=== PATIENT | male | born 1970 | race Caucasian/White ===

== ENCOUNTER 2017-11-01 15:42 | Emergency (ER) | payer SELFPAY ==
--- OUTSIDE RECORDS SUMMARY | 2017-11-01 15:44 | XMS REPORT ---
:1970 [facility] Address [address] [place] [address] Care Team Providers Name Role Phone VLADIMIR YONI Charlton Unavailable Unavailable Problems This patient has no known problems. Allergies, Adverse Reactions, Alerts This patient has no known allergies or adverse reactions. Medications This patient has no known medications. Results Test Description Test Time Test Comments Text Results Atomic Results Result Comments URINE CULTURE 2017-02-14 11:33:00 Test Item Value Reference Range Comments CULTURE (BEAKER) (test siai=7822) No growth POCT-GLUCOSE [id number] 07:35:00 Test Item Value Reference Range Comments POC-GLUCOSE METER (BEAKER) 207 mg/dL 70-110 TESTED AT [facility] [address] [facility] (test tsyw=4963) [facility] [address] BASIC METABOLIC [id number] 05:53:00 Test Item Value Reference Range Comments SODIUM (BEAKER) (test 134 meq/L 136-145 kvxb=125) POTASSIUM (BEAKER) (test 4.0 meq/L 3.5-5.1 ptjk=474) CHLORIDE (BEAKER) (test 103 meq/L 98-107 cvmw=412) CO2 (BEAKER) (test 23 meq/L 22-29 ykel=087) BLOOD UREA NITROGEN 13 mg/dL 7-21 (BEAKER) (test huhq=975) CREATININE (BEAKER) (test 0.91 mg/dL 0.57-1.25 sufv=202) GLUCOSE RANDOM (BEAKER) 176 mg/dL 70-105 (test csmn=406) CALCIUM (BEAKER) (test 8.9 mg/dL 8.4-10.2 cfnd=958) EGFR (BEAKER) (test 90 mL/min/1.73 sq m ESTIMATED GFR IS NOT vmmk=4050) ACCURATE CREATININE CLEARANCE IN PREDICTING GLOMERULAR FILTRATION RATE. ESTIMATED GFR IS NOT APPLICABLE FOR DIALYSIS PATIENTS. CBC W/PLT COUNT & AUTO [id number] 05:23:00 Test Item Value Reference Range Comments WHITE BLOOD CELL COUNT (BEAKER) (test wwlz=053) 7.0 K/ L 3.5-10.5 RED BLOOD CELL COUNT (BEAKER) (test aefs=629) 5.15 M/ L 4.63-6.08 HEMOGLOBIN (BEAKER) (test kpzn=894) 15.3 GM/DL 13.7-17.5 HEMATOCRIT (BEAKER) (test nzfz=546) 44.7 % 40.1-51.0 MEAN CORPUSCULAR VOLUME (BEAKER) (test vizg=006) 86.8 fL 79.0-92.2 MEAN CORPUSCULAR HEMOGLOBIN (BEAKER) (test 29.7 pg 25.7-32.2 eyvm=528) MEAN CORPUSCULAR HEMOGLOBIN CONC (BEAKER) (test 34.2 GM/DL 32.3-36.5 mcuf=401) RED CELL DISTRIBUTION WIDTH (BEAKER) (test 11.9 % 11.6-14.4 sclq=951) PLATELET COUNT (BEAKER) (test xbep=671) 239 K/CU MM 150-450 MEAN PLATELET VOLUME (BEAKER) (test epqb=565) 9.4 fL 9.4-12.4 NUCLEATED RED BLOOD CELLS (BEAKER) (test 0 /100 WBC 0-0 uxvf=008) NEUTROPHILS RELATIVE PERCENT (BEAKER) (test 48 % frhg=482) LYMPHOCYTES RELATIVE PERCENT (BEAKER) (test 40 % blgb=059) MONOCYTES RELATIVE PERCENT (BEAKER) (test 7 % slys=140) EOSINOPHILS RELATIVE PERCENT (BEAKER) (test 4 % yjok=103) BASOPHILS RELATIVE PERCENT (BEAKER) (test 1 % akwz=593) NEUTROPHILS ABSOLUTE COUNT (BEAKER) (test 3.36 K/ L 1.78-5.38 dxtb=495) LYMPHOCYTES ABSOLUTE COUNT (BEAKER) (test 2.83 K/ L 1.32-3.57 jteo=027) MONOCYTES ABSOLUTE COUNT (BEAKER) (test 0.49 K/ L 0.30-0.82 zpqg=402) EOSINOPHILS ABSOLUTE COUNT (BEAKER) (test 0.28 K/ L 0.04-0.54 jqts=300) BASOPHILS ABSOLUTE COUNT (BEAKER) (test 0.04 K/ L 0.01-0.08 jxtn=705) IMMATURE GRANULOCYTES-RELATIVE PERCENT (BEAKER) 0 % 0-1 (test nubg=9063) POCT-GLUCOSE [id number] 21:20:00 Test Item Value Reference Range Comments POC-GLUCOSE METER (BEAKER) 211 mg/dL 70-110 TESTED AT [address] (test honx=8216) [place] [address] URINALYSIS W/ [id number] 17:49:00 Test Item Value Reference Range Comments COLOR (BEAKER) (test bpvu=825) Yellow CLARITY (BEAKER) (test yrth=809) Clear SPECIFIC GRAVITY UA (BEAKER) (test sqrf=936) 1.009 1.001-1.035 PH UA (BEAKER) (test jgxv=314) 5.0 5.0-8.0 PROTEIN UA (BEAKER) (test nnmy=925) Negative Negative GLUCOSE UA (BEAKER) (test jvki=606) Negative Negative KETONES UA (BEAKER) (test ynky=690) Negative Negative BILIRUBIN UA (BEAKER) (test ldmv=815) Negative Negative BLOOD UA (BEAKER) (test kadw=241) Small Negative NITRITE UA (BEAKER) (test nodr=834) Negative Negative LEUKOCYTE ESTERASE UA (BEAKER) (test ewel=353) Trace Negative UROBILINOGEN UA (BEAKER) (test jctq=119) 0.2 mg/dL 0.2-1.0 RBC UA (BEAKER) (test zoqo=766) 7 /HPF WBC UA (BEAKER) (test qlqr=195) 10 /HPF MUCUS (BEAKER) (test luqb=5233) Rare SOURCE(BEAKER) (test dpgm=1550) Urine, Voided POCT-GLUCOSE [id number] 17:19:00 Test Item Value Reference Range Comments POC-GLUCOSE METER (BEAKER) 156 mg/dL 70-110 TESTED AT [address] (test ohlw=1508) [place] [address]
--- OUTSIDE RECORDS SUMMARY | 2017-11-01 15:44 | XMS REPORT | Clinical Summary ---
:1970 Author Organization [facility] Address [address] [place] [address] Phone Care Team Providers Name Role Phone Unavailable Primary Care Provider Unavailable Allergies No Known Allergies Current Medications Prescription Sig. Disp. Refills Start Date End Date Status metFORMIN Take 500 mg by Active (GLUCOPHAGE) 500 MG mouth 2 (two) tablet times daily with breakfast and dinner. ciprofloxacin HCl Take 1 tablet 28 tablet 0 02/13/2017 02/27/2017 (CIPRO) 500 MG tablet (500 mg total) by mouth 2 (two) times daily for 14 days. acetaminophen-codeine Take 1 tablet by 30 tablet 0 02/13/2017 02/23/2017 (TYLENOL-CODEINE #3) mouth every 4 300-30 mg per tablet (four) hours as needed for Pain for up to 10 days. Max Daily Amount: 6 tablets ketorolac (TORADOL) Take 1 tablet 20 tablet 0 02/13/2017 02/18/2017 10 mg tablet (10 mg total) by mouth every 6 (six) hours as needed for Pain for up to 5 days. Active Problems Problem Noted Date Nephrolithiasis 02/12/2017 Type 2 diabetes mellitus without complication (HCC) 02/12/2017 Hydronephrosis 02/12/2017 Encounters Date Type Specialty Care Team Description 02/12/2017 - Hospital Encounter General Internal Sarah Echols, Type 2 diabetes 02/13/2017 Medicine mellitus without Zakia Ayala R., MD without long-term current use of insulin (HCC) (Primary Dx);Nephrolithiasis ;Hydronephrosis with urinary obstruction due to renal calculus after 10/31/2016 Social History Tobacco Use Types Packs/Day Years Used Date Never Assessed Sex Assigned at Date Recorded Not on file Last Filed Vital Signs Vital Sign Reading Time Taken Blood Pressure 113/65 02/13/2017 7:38 AM CDT Pulse 67 02/13/2017 7:38 AM CDT Temperature 36.1 C (96.9 F) 02/13/2017 7:38 AM CDT Respiratory Rate 18 02/13/2017 7:38 AM CDT Oxygen Saturation 92% 02/13/2017 7:38 AM CDT Inhaled Oxygen Concentration - - Weight 114.3 kg (252 lb) 02/12/2017 3:42 PM CDT Height 177.8 cm (5' 10") 02/12/2017 3:42 PM CDT Body Mass Index 36.16 02/12/2017 3:42 PM CDT Plan of Treatment Not on file Results POC-Glucose meter (02/13/2017 7:30 AM)Only the most recent of3 resultswithin the time period is included. Component Value Ref Range POC-Glucose Meter 207 (H)Comment: TESTED AT [address] 70 - 110 mg/[place] [address] Specimen Performing Laboratory Blood [address] [address] CBC with platelet count + automated diff (02/13/2017 4:09 AM) Component Value Ref Range WBC 7.0 3.5 - 10.5 K/L RBC 5.15 4.63 - 6.08 M/L Hemoglobin 15.3 13.7 - 17.5 GM/DL Hematocrit 44.7 40.1 - 51.0 % MCV 86.8 79.0 - 92.2 fL MCH 29.7 25.7 - 32.2 pg MCHC 34.2 32.3 - 36.5 GM/DL RDW 11.9 11.6 - 14.4 % Platelets 239 150 - 450 K/CU MM MPV 9.4 9.4 - 12.4 fL nRBC 0 0 - 0 /100 WBC % Neutros 48 % % Lymphs 40 % % Monos 7 % % Eos 4 % % Baso 1 % # Neutros 3.36 1.78 - 5.38 K/L # Lymphs 2.83 1.32 - 3.57 K/L # Monos 0.49 0.30 - 0.82 K/L # Eos 0.28 0.04 - 0.54 K/L # Baso 0.04 0.01 - 0.08 K/L Immature Granulocytes-Relative 0 0 - 1 % Specimen Performing Laboratory Blood [address] [address] CBC with platelet count + automated diff (02/13/2017 4:09 AM) Specimen Performing Laboratory Blood Narrative The following orders were created for panel order CBC with platelet count + automated diff. Procedure Abnormality Status --------- ------ CBC with platelet count ...[[id number]]Final result Please view results for these tests on the individual orders. Basic Metabolic Panel (02/13/2017 4:09 AM) Component Value Ref Range Sodium 134 (L) 136 - 145 meq/L Potassium 4.0 3.5 - 5.1 meq/L Chloride 103 98 - 107 meq/L CO2 23 22 - 29 meq/L BUN 13 7 - 21 mg/dL Creatinine 0.91 0.57 - 1.25 mg/dL Glucose 176 (H) 70 - 105 mg/dL Calcium 8.9 8.4 - 10.2 mg/dL EGFR 90Comment: ESTIMATED GFR IS NOT ACCURATE mL/min/1.73 sq m CREATININE CLEARANCE IN PREDICTING GLOMERULAR FILTRATION RATE. ESTIMATED GFR IS NOT APPLICABLE FOR DIALYSIS PATIENTS. Specimen Performing Laboratory Blood [address] [address] Urinalysis w/Microscopic (02/12/2017 5:13 PM) Component Value Ref Range Color, UA Yellow Clarity, UA Clear Specific [place], UA 1.009 1.001 - 1.035 pH, UA 5.0 5.0 - 8.0 Protein, UA Negative Negative Glucose, UA Negative Negative Ketones, UA Negative Negative Bilirubin, UA Negative Negative Blood, UA Small (A) Negative Nitrite, UA Negative Negative Leukocytes, UA Trace (A) Negative Urobilinogen, UA 0.2 0.2 - 1.0 mg/dL RBC, UA 7 /HPF WBC, UA 10 /HPF Mucus Rare Specimen Source Urine, Voided Specimen Performing Laboratory Urine - Urine, Voided [address] [address] Urine culture (02/12/2017 5:13 PM) Component Value Ref Range Result No growth Specimen Performing Laboratory Urine - Urine, Voided [address] [address] after 10/31/2016
--- NOTE | 2017-11-01 19:46 | ER ---
Nurse's Notes [facility] Name: Manuel Syed Age: 47 yrs Sex: Male : 1970 Arrival Date: 11/01/2017 Time: 15:45 Bed Waiting Private MD: out of town, doctor Diagnosis: Presentation: 11/01 15:52 Presenting complaint: Patient states: "Sitting in my office today and I got a really sv weak and tired feeling, nauseated, and started sweating really bad. Real confusion. I had to think about things." Pt reports he just started taking his glyburide again today. Reports BS at work was 121. Transition of care: patient was not received from another setting of care. Onset of symptoms was November 01, 2017. 15:52 Method Of Arrival: Ambulatory sv 15:52 Acuity: KENDRA 3 sv 15:54 Care prior to arrival: None. sv Triage Assessment: 15:52 General: Appears comfortable, well groomed, Behavior is calm, cooperative, appropriate sv for age. Pain: Denies pain. EENT: No signs and/or symptoms were reported regarding the EENT system. Neuro: Level of Consciousness is awake, alert, obeys commands, Oriented to person, place, time, situation, Moves all extremities. Full function Gait is steady, Speech is normal, Reports dizziness, weakness. Respiratory: Respiratory effort is even, unlabored, Respiratory pattern is regular, symmetrical. GI: Reports nausea. Derm: Skin is normal. 16:44 General: Appears comfortable, Reports feeling better. Neuro: Level of Consciousness is sv awake, alert, obeys commands, Oriented to person, place, time, situation, Moves all extremities. Full function Gait is steady, Speech is normal. Respiratory: Respiratory effort is even, unlabored, Respiratory pattern is regular, symmetrical. Historical: - Allergies: 15:54 Macrobid; sv - Home Meds: 15:54 Metformin Oral [Active]; Glyburide Oral [Active]; sv - PMHx: 15:54 Diabetes - NIDDM; Diverticulitis; Kidney stones; sv - PSHx: 15:54 colon sx; sv - Social history:: Smoking status: Patient uses tobacco products, smokes one pack cigarettes per day. Vital Signs: 15:55 BP 133 / 88; Pulse 87; Resp 18; Pulse Ox 96% ; Weight 115.67 kg; Height 5 ft. 11 in. sv (180.34 cm); Pain 0/10; 15:55 Body Mass Index 35.56 (115.67 kg, 180.34 cm) sv ED Course: 15:45 Patient arrived in ED. mr 15:46 out of town, doctor is Private Physician. mr 15:52 Arm band placed on right wrist. Patient placed in waiting room, Patient notified of sv wait time Patient Pt given orange juice, crackers and peanut butter. Will recheck BS. 15:53 Triage completed. sv 16:44 EKG completed in triage. Results shown to MD. sv 16:44 EKG done, by technical asst. sv Administered Medications: No medications were administered Point of Care Testing: Blood Glucose: 15:58 Blood Glucose: 78 mg/dL; sv 16:44 Blood Glucose: 136 mg/dL; sv Ranges: Outcome: 19:45 Eloped from waiting room, before seeing physician Time discovered patient gone: November 01, lp1 2018 at 19:39 19:45 Condition: stable 19:46 Patient left the ED. lp1 Signatures: Lina Pan, RN RN Sarah Magaña mr Sharon Horn, RN RN lp1 Corrections: (The following items were deleted from the chart) 15:55 15:52 Presenting complaint: Patient states: "Sitting in my office today and I got a sv really weak and tired feeling, nauseated, and started sweating really bad. Real confusion. I had to think about things." sv
--- NOTE | 2017-11-01 21:33 | EKG ---
Test Date: 2017-11-01 Test Time: 16:44:40 Net Sql Developer: LEANA MEASUREMENT RESULTS: Intervals: Rate: 88 CO: 150 QRSD: 84 QT: 344 QTc: 416 [place]: P: 52 CO: 150 QRS: 85 T: 40 INTERPRETIVE STATEMENTS: Normal sinus rhythm Normal ECG Compared to ECG 08/09/2016 16:00:10 Sinus arrhythmia no longer present Electronically Signed On 11-01-17 21:32:27 CDT by Addison August
== END 2017-11-01 19:46 | disposition left against medical advice (07) ==
LOC: ER 15:42
DX: Z53.21 Procedure and treatment not carried out due to patient leaving prior to being seen by health care provider (principal)
CPT/HCPCS: 82962; 93005; 99283

== ENCOUNTER 2018-02-01 09:20 | Emergency (ER) | payer SELFPAY ==
--- OUTSIDE RECORDS SUMMARY | 2018-02-01 09:33 | XMS REPORT | Clinical Summary ---
:1970 Author Organization [facility] Address [address] [place] [address] Phone Care Team Providers Name Role Phone [...] urinary obstruction due to renal calculus after 01/31/2017 Social History Tobacco Use Types Packs/Day Years [...] Range POC-Glucose Meter 207 (H)Comment: TESTED AT [address] 70 - 110 mg/[place] [address] Specimen Performing Laboratory Blood [address] [address] CBC with platelet count + automated diff [...] - 1 % Specimen Performing Laboratory Blood [address] [address] CBC with platelet count + automated diff (02/13/2017 4:09 AM) Specimen Performing Laboratory Blood Narrative The following orders were created for panel order CBC with platelet count + automated diff. Procedure Abnormality Status --------- ------ CBC with platelet count ...[[id number]]Final result Please view results for these tests [...] FOR DIALYSIS PATIENTS. Specimen Performing Laboratory Blood [address] [address] Urinalysis w/Microscopic (02/12/2017 5:13 PM) Component Value Ref Range Color, UA Yellow Clarity, UA Clear Specific [place], UA 1.009 1.001 - 1.035 pH, UA [...] Specimen Performing Laboratory Urine - Urine, Voided [address] [address] Urine culture (02/12/2017 5:13 PM) Component Value Ref Range Result No growth Specimen Performing Laboratory Urine - Urine, Voided [address] [address] after 01/31/2017
--- OUTSIDE RECORDS SUMMARY | 2018-02-01 09:33 | XMS REPORT ---
:1970 [facility] Address [address] [place] [address] Care Team Providers Name Role Phone VLADIMIR [...] Value Reference Range Comments CULTURE (BEAKER) (test ipqu=8018) No growth POCT-GLUCOSE [id number] 07:35:00 Test Item Value Reference Range Comments POC-GLUCOSE METER (BEAKER) 207 mg/dL 70-110 TESTED AT [facility] [address] [facility] (test chnu=1552) [facility] [address] BASIC METABOLIC [id number] 05:53:00 Test Item Value Reference Range Comments SODIUM (BEAKER) (test 134 meq/L 136-145 qujy=300) POTASSIUM (BEAKER) (test 4.0 meq/L 3.5-5.1 bjyn=113) CHLORIDE (BEAKER) (test 103 meq/L 98-107 vlbx=965) CO2 (BEAKER) (test 23 meq/L 22-29 qgsq=608) BLOOD UREA NITROGEN 13 mg/dL 7-21 (BEAKER) (test zsaf=314) CREATININE (BEAKER) (test 0.91 mg/dL 0.57-1.25 grcx=188) GLUCOSE RANDOM (BEAKER) 176 mg/dL 70-105 (test cnjv=717) CALCIUM (BEAKER) (test 8.9 mg/dL 8.4-10.2 cmxy=291) EGFR (BEAKER) (test 90 mL/min/1.73 sq m ESTIMATED GFR IS NOT hhxx=1341) ACCURATE CREATININE CLEARANCE IN PREDICTING GLOMERULAR FILTRATION RATE. ESTIMATED GFR IS NOT APPLICABLE FOR DIALYSIS PATIENTS. CBC W/PLT COUNT & AUTO [id number] 05:23:00 Test Item Value Reference Range Comments WHITE BLOOD CELL COUNT (BEAKER) (test zhcj=583) 7.0 K/ L 3.5-10.5 RED BLOOD CELL COUNT (BEAKER) (test qvvh=828) 5.15 M/ L 4.63-6.08 HEMOGLOBIN (BEAKER) (test mvft=991) 15.3 GM/DL 13.7-17.5 HEMATOCRIT (BEAKER) (test yden=354) 44.7 % 40.1-51.0 MEAN CORPUSCULAR VOLUME (BEAKER) (test nxms=483) 86.8 fL 79.0-92.2 MEAN CORPUSCULAR HEMOGLOBIN (BEAKER) (test 29.7 pg 25.7-32.2 qxii=737) MEAN CORPUSCULAR HEMOGLOBIN CONC (BEAKER) (test 34.2 GM/DL 32.3-36.5 kjeu=312) RED CELL DISTRIBUTION WIDTH (BEAKER) (test 11.9 % 11.6-14.4 jdur=104) PLATELET COUNT (BEAKER) (test bfaz=446) 239 K/CU MM 150-450 MEAN PLATELET VOLUME (BEAKER) (test fxzm=580) 9.4 fL 9.4-12.4 NUCLEATED RED BLOOD CELLS (BEAKER) (test 0 /100 WBC 0-0 fhcc=717) NEUTROPHILS RELATIVE PERCENT (BEAKER) (test 48 % ubtx=927) LYMPHOCYTES RELATIVE PERCENT (BEAKER) (test 40 % jzzw=102) MONOCYTES RELATIVE PERCENT (BEAKER) (test 7 % dndv=738) EOSINOPHILS RELATIVE PERCENT (BEAKER) (test 4 % yzbi=739) BASOPHILS RELATIVE PERCENT (BEAKER) (test 1 % tnuq=128) NEUTROPHILS ABSOLUTE COUNT (BEAKER) (test 3.36 K/ L 1.78-5.38 wsew=376) LYMPHOCYTES ABSOLUTE COUNT (BEAKER) (test 2.83 K/ L 1.32-3.57 oiny=137) MONOCYTES ABSOLUTE COUNT (BEAKER) (test 0.49 K/ L 0.30-0.82 hsdu=826) EOSINOPHILS ABSOLUTE COUNT (BEAKER) (test 0.28 K/ L 0.04-0.54 tlgc=245) BASOPHILS ABSOLUTE COUNT (BEAKER) (test 0.04 K/ L 0.01-0.08 pcty=228) IMMATURE GRANULOCYTES-RELATIVE PERCENT (BEAKER) 0 % 0-1 (test hcup=0726) POCT-GLUCOSE [id number] 21:20:00 Test Item Value Reference Range Comments POC-GLUCOSE METER (BEAKER) 211 mg/dL 70-110 TESTED AT [address] (test cshm=9290) [place] [address] URINALYSIS W/ [id number] 17:49:00 Test Item Value Reference Range Comments COLOR (BEAKER) (test goqw=365) Yellow CLARITY (BEAKER) (test mnxl=327) Clear SPECIFIC GRAVITY UA (BEAKER) (test krkj=622) 1.009 1.001-1.035 PH UA (BEAKER) (test owkb=821) 5.0 5.0-8.0 PROTEIN UA (BEAKER) (test zxxg=288) Negative Negative GLUCOSE UA (BEAKER) (test eces=482) Negative Negative KETONES UA (BEAKER) (test hbxp=039) Negative Negative BILIRUBIN UA (BEAKER) (test gtfu=958) Negative Negative BLOOD UA (BEAKER) (test dnbh=784) Small Negative NITRITE UA (BEAKER) (test pwbv=033) Negative Negative LEUKOCYTE ESTERASE UA (BEAKER) (test soqh=046) Trace Negative UROBILINOGEN UA (BEAKER) (test fhqu=739) 0.2 mg/dL 0.2-1.0 RBC UA (BEAKER) (test xbuw=611) 7 /HPF WBC UA (BEAKER) (test yous=851) 10 /HPF MUCUS (BEAKER) (test hshp=8591) Rare SOURCE(BEAKER) (test jdjc=4735) Urine, Voided POCT-GLUCOSE [id number] 17:19:00 Test Item Value Reference Range Comments POC-GLUCOSE METER (BEAKER) 156 mg/dL 70-110 TESTED AT [address] (test akbl=7569) [place] [address]
[2018-02-01 09:58] LABS: Absolute Monocytes 0.6 K/uL (0.1-1.3); Basophils % 0.6 % (0-1.3); Eosinophils % 2.3 % (0-4.4); Hematocrit 48.6 % (39.6-49.0); Lymphocytes % 20.6 % (15.3-44.8); MCH 30.8 pg (27.0-35.0); MCV 87.7 fL (80-100); MPV 7.1 fL (7.6-11.3); Monocytes % 5.7 % (3.3-12.3); RBC Red Blood Cell Count 5.54 M/uL (4.33-5.43)
[2018-02-01] MEDS ORDERED: NA CHLORIDE 0.9% 500 ML ONE (10:02)
--- NOTE | 2018-02-01 10:11 | RAD REPORT ---
EXAM DESCRIPTION: CT - Head Brain Wo Cont - 02/01/2018 10:05 am CLINICAL HISTORY: DIZZINESS<Reason For Exam>DIZZINESS Weakness and numbness to the left upper extremity COMPARISON: Head Brain Wo Cont dated 08/09/2016<Comparisons> None. TECHNIQUE: Axial 5 mm thick images of the head were obtained without IV contrast. All CT scans are performed using dose optimization technique as appropriate and may include automated exposure control or mA/KV adjustment according to patient size. FINDINGS: No intracranial hemorrhage, mass, edema or shift of mid-line structures. No acute infarcti on changes seen. No abnormal extra-axial fluid collections. Ventricles are normal. Mastoid air cells and visualized portions of the paranasal sinuses are clear. No acute bony findings. No significant change noted from the 2017 study. IMPRESSION: Negative noncontrast CT head examination for acute finding. No significant change from c omparison. MR imaging could be performed if there are continued neurologic deficits and clinical concerns for CV A.
[2018-02-01 10:21] LABS: BUN Blood Urea Nitrogen 16 mg/dL (7-18); Bicarbonate 26 mmol/L (21-32); CKMB Creatine Kinase MB < 1.0 ng/mL (0.3-3.6); Creatine Phosphokinase 38 U/L (39-308); Glucose Level 239 mg/dL (74-106); Magnesium 1.9 mg/dL (1.8-2.4); Potassium 3.9 mmol/L (3.5-5.1); Sodium Level 135 mmol/L (136-145)
--- NOTE | 2018-02-01 11:33 | RAD REPORT ---
EXAM DESCRIPTION: MRI - Brain Wo Cont - 02/01/2018 11:24 am CLINICAL HISTORY: Dizziness; Numbness left arm COMPARISON: Head Brain Wo Cont dated 02/01/2018Head CT February 01, 2018 TECHNIQUE: Axial, sagittal, and coronal magnetic images of the brain were obtained. Contrast was not requested FINDINGS: No abnormal signal is present within the brain. Diffusion-weighted/ADC mapping does not reveal evidence of acute infarction. The ventricles are normal caliber. An extra-axial fluid collection is not present The sinuses and mastoids are clear. IMPRESSION: Unremarkable unenhanced brain MRI
--- NOTE | 2018-02-01 11:43 | ER ---
Nurse's Notes [facility] Name: Manuel Syed Age: 47 yrs Sex: Male : 1970 Arrival Date: 02/01/2018 Time: 09:23 Bed 25 Private MD: out of town, doctor Diagnosis: Paresthesia of skin;Hyperglycemia, unspecified;Dehydration;Dizziness and giddiness Presentation: 02/01 09:31 Presenting complaint: Patient states: Dizziness and weakness with numbness to left aj fingertips and lips that started at 0830 this AM. Transition of care: patient was not received from another setting of care. Onset of symptoms was February 01, 2018 at 08:30. Risk Assessment: Do you want to hurt yourself or someone else? Patient reports no desire to harm self or others. Initial Sepsis Screen: Does the patient meet any 2 criteria? No. Patient's initial sepsis screen is negative. Does the patient have a suspected source of infection? No. Patient's initial sepsis screen is negative. Care prior to arrival: Medication(s) given: ASA, 81 mg, x 2. 09:31 Method Of Arrival: Ambulatory 09:31 Acuity: KENDRA 3 aj Triage Assessment: 09:33 General: Appears in no apparent distress. comfortable, Behavior is calm, cooperative, aj appropriate for age. Pain: Denies pain. Neuro: Level of Consciousness is awake, alert, obeys commands, Oriented to person, place, time, situation, Appropriate for age Candy Catcher are equal bilaterally Moves all extremities. Full function Gait is steady, Speech is normal, Facial symmetry appears normal, Pupils are PERRLA, Numbness in mouth, palmar aspect of distal phalanx of left little finger, palmar aspect of middle phalanx of left little finger, palmar aspect of proximal phalanx of left little finger, palmar aspect of distal phalanx of left ring finger, palmar aspect of middle phalanx of left ring finger, palmar aspect of proximal phalanx of left ring finger, palmar aspect of distal phalanx of left middle finger, palmar aspect of middle phalanx of left middle finger, palmar aspect of proximal phalanx of left middle finger, palmar aspect of distal phalanx of left index finger, palmar aspect of middle phalanx of left index finger and palmar aspect of proximal phalanx of left index finger. Cardiovascular: Denies chest pain. Respiratory: Airway is patent Respiratory effort is even, unlabored, Respiratory pattern is regular, symmetrical. Derm: Skin is intact, is healthy with good turgor, Skin is pink, warm \T\ dry. normal. Historical: - Allergies: : Macrobid; aj - Home Meds: : Flomax Oral [Active]; Glyburide Oral [Active]; Metformin Oral [Active]; aj - PMHx: : Diabetes - NIDDM; Diverticulitis; Kidney stones; - PSHx: : colon sx; aj - Immunization history:: Adult Immunizations up to date. - Ebola Screening: : Patient negative for fever greater than or equal to 101.5 degrees Fahrenheit, and additional compatible Ebola Virus Disease symptoms Patient denies exposure to infectious person Patient denies travel to an Ebola-affected area in the 21 days before illness onset No symptoms or risks identified at this time. - Family history:: not pertinent. - Social history:: Smoking status: Patient/guardian denies using tobacco, Patient/guardian denies using alcohol, street drugs. - Hospitalizations: : No recent hospitalization is reported. Screenin:50 Abuse screen: Denies threats or abuse. Denies injuries from another. Nutritional ch screening: No deficits noted. Tuberculosis screening: No symptoms or risk factors identified. Fall Risk None identified. Assessment: 10:02 General: Appears in no apparent distress. comfortable, Behavior is calm, cooperative, ch appropriate for age. Pain: Denies pain. Neuro: Level of Consciousness is awake, alert, obeys commands, Oriented to person, place, time, situation, Candy Catcher are equal bilaterally Moves all extremities. Full function Gait is steady, Speech is normal, Facial symmetry appears normal, Facial symmetry: tongue is midline, Pupils are PERRLA, Reports dizziness, numbness in palmar aspect of distal phalanx of left little finger, palmar aspect of middle phalanx of left little finger, palmar aspect of distal phalanx of left ring finger, palmar aspect of middle phalanx of left ring finger, palmar aspect of distal phalanx of left middle finger, palmar aspect of middle phalanx of left middle finger, palmar aspect of distal phalanx of left index finger and palmar aspect of middle phalanx of left index finger. Cardiovascular: Heart tones S1 S2 present Capillary refill < 3 seconds in bilateral fingers toes. Respiratory: No deficits noted. Airway is patent Respiratory effort is even, unlabored, Breath sounds are clear bilaterally. GI: No signs and/or symptoms were reported involving the gastrointestinal system. Derm: No signs and/or symptoms reported regarding the dermatologic system. Skin is pink, warm \T\ dry. 10:52 Reassessment: Patient appears in no apparent distress at this time. Patient and/or ch family updated on plan of care and expected duration. Pain level reassessed. Patient is alert, oriented x 3, equal unlabored respirations, skin warm/dry/pink. Patient states feeling better. Patient states symptoms have improved. 11:38 Reassessment: Patient appears in no apparent distress at this time. Patient and/or ch family updated on plan of care and expected duration. Pain level reassessed. Patient is alert, oriented x 3, equal unlabored respirations, skin warm/dry/pink. Patient states feeling better. Patient states symptoms have improved. 11:51 Reassessment: Patient appears in no apparent distress at this time. Patient and/or ch family updated on plan of care and expected duration. Pain level reassessed. Patient is alert, oriented x 3, equal unlabored respirations, skin warm/dry/pink. Patient states feeling better. Patient states symptoms have improved. Vital Signs: 09:33 BP 154 / 102; Pulse 93; Resp 19; Temp 97.8; Pulse Ox 97% on R/A; Weight 114.76 kg; aj Height 5 ft. 11 in. (180.34 cm); 10:02 BP 128 / 84; Pulse 84; Resp 16; Temp 98.3; Pulse Ox 99% on R/A; Pain 0/10; ch 10:52 BP 132 / 78; Pulse 78; Resp 14; Pulse Ox 99% on R/A; Pain 0/10; ch 11:51 BP 117 / 80; Pulse 66; Resp 14; Temp 98; Pulse Ox 98% on R/A; Pain 0/10; ch 09:33 Body Mass Index 35.29 (114.76 kg, 180.34 cm) ED Course: 09:23 Patient arrived in ED. sb2 09:23 out of town, doctor is Private Physician. sb2 09:24 Caio Schulz MD is Attending Physician. rn 09:33 Triage completed. aj 09:33 Arm band placed on left wrist. Patient placed in an exam room. aj 09:50 No apparent distress. Resting quietly. 09:50 Patient has correct armband on for positive identification. Placed in gown. Bed in low ch position. Call light in reach. Side rails up X 1. Adult w/ patient. teletypesetter monitor on. Pulse ox on. NIBP on. 09:50 No provider procedures requiring assistance completed. Inserted saline lock: 20 gauge ch in left forearm, using aseptic technique. Blood collected. 09:53 EKG done, by vocational rehabilitation technician. reviewed by Caio Schulz MD. dt2 09:55 Angela Rowland, RN is Primary Nurse. 10:05 CT completed. Patient tolerated procedure well. Patient moved to CT via wheelchair. [email or web address] Patient moved back from CT. 10:06 CT Head Brain wo Cont In Process Unspecified. EDMS 11:25 Brain Wo Cont MRI In Process Unspecified. EDMS 11:51 IV discontinued, intact, bleeding controlled, No redness/swelling at site. Pressure ch dressing applied. Administered Medications: 10:05 Drug: NS 0.9% 500 ml Route: IV; Rate: bolus; Site: left forearm; 10:53 Follow up: IV Status: Completed infusion; IV Intake: 500ml Point of Care Testing: Blood Glucose: 09:50 Blood Glucose: 201 mg/dL; Ranges: Intake: 10:53 IV: 500ml; Total: 500ml. Outcome: 11:42 Discharge ordered by MD. rn 11:51 Discharged to home ambulatory, with family. 11:51 Condition: stable 11:51 Discharge instructions given to patient, family, Instructed on discharge instructions, follow up and referral plans. medication usage, Demonstrated understanding of instructions, follow-up care. 11:52 Patient left the ED. Signatures: Dispatcher [employer] EDMS Angela Rowland, RN Suzie Cisse ch RN Caio Del Cid MD MD rn Billeau, Sheri sb2 Caro Martin dt2 Palak Craft [email or web address]
--- NOTE | 2018-02-01 11:43 | EDPHYS ---
Physician Documentation [facility] Name: Manuel Syed Age: 47 yrs Sex: Male : 1970 Arrival Date: 02/01/2018 Time: 09:23 Bed 25 Private MD: out of town, doctor ED Physician Caio Schulz HPI: 02/01 09:33 This 47 yrs old Male presents to ER via Ambulatory with complaints of Blood rn Pressure Problem, Dizziness, Near Syncope. 09:33 The patient presents with dizziness, feeling faint, generalized weakness, rn lightheadedness. Onset: The symptoms/episode began/occurred 1 hour(s) ago. Modifying factors: The symptoms are alleviated by nothing, the symptoms are aggravated by changing position. Severity of symptoms: At their worst the symptoms were moderate in the emergency department the symptoms have improved. The patient has not experienced similar symptoms in the past. Reports at work, walking, felt lightheaded, took BP, systolic was around 200, never that high for him in past, states normally around 120, felt some tingling around his lips and left hand, no focal weakness, feels lightheaded, able to walk ok, no speech problems, has slowly improved, now only feels tingling to left fingertips and lightheaded when changes position.. Historical: - Allergies: :33 Macrobid; aj - Home Meds: :33 Flomax Oral [Active]; Glyburide Oral [Active]; Metformin Oral [Active]; aj - PMHx: 09:33 Diabetes - NIDDM; Diverticulitis; Kidney stones; aj - PSHx: 09:33 colon sx; aj - Immunization history:: Adult Immunizations up to date. - Ebola Screening: : Patient negative for fever greater than or equal to 101.5 degrees Fahrenheit, and additional compatible Ebola Virus Disease symptoms Patient denies exposure to infectious person Patient denies travel to an Ebola-affected area in the 21 days before illness onset No symptoms or risks identified at this time. - Family history:: not pertinent. - Social history:: Smoking status: Patient/guardian denies using tobacco, Patient/guardian denies using alcohol, street drugs. - Hospitalizations: : No recent hospitalization is reported. ROS: 09:33 Constitutional: Negative for fever, chills, and weight loss, Eyes: Negative for injury, rn pain, redness, and discharge, Neck: Negative for injury, pain, and swelling, Cardiovascular: Negative for chest pain, palpitations, and edema, Respiratory: Negative for shortness of breath, cough, wheezing, and pleuritic chest pain, Abdomen/GI: Negative for abdominal pain, nausea, vomiting, diarrhea, and constipation, MS/Extremity: Negative for injury and deformity, Skin: Negative for injury, rash, and discoloration, Neuro: Negative for headache, seizure. Exam: 09:33 Constitutional: This is a well developed, well nourished patient who is awake, alert, rn appears anxious Head/Face: Normocephalic, atraumatic. Eyes: Pupils equal round and reactive to light, extra-ocular motions intact. Lids and lashes normal. Conjunctiva and sclera are non-icteric and not injected. Cornea within normal limits. Periorbital areas with no swelling, redness, or edema. Cardiovascular: Regular rate and rhythm with a normal S1 and S2. No gallops, murmurs, or rubs. Normal PMI, no JVD. No pulse deficits. Respiratory: Lungs have equal breath sounds bilaterally, clear to auscultation and percussion. No rales, rhonchi or wheezes noted. No increased work of breathing, no retractions or nasal flaring. Abdomen/GI: Soft, non-tender, with normal bowel sounds. No distension or tympany. No guarding or rebound. No evidence of tenderness throughout. MS/ Extremity: Pulses equal, no cyanosis. Neurovascular intact. Full, normal range of motion. Equal circumference. Neuro: Awake and alert, GCS 15, oriented to person, place, time, and situation. Cranial nerves II-XII grossly intact. Motor strength 5/5 in all extremities. Sensory grossly intact. Cerebellar exam normal. Normal gait. Vital Signs: 09:33 BP 154 / 102; Pulse 93; Resp 19; Temp 97.8; Pulse Ox 97% on R/A; Weight 114.76 kg; aj Height 5 ft. 11 in. (180.34 cm); 10:02 BP 128 / 84; Pulse 84; Resp 16; Temp 98.3; Pulse Ox 99% on R/A; Pain 0/10; ch 10:52 BP 132 / 78; Pulse 78; Resp 14; Pulse Ox 99% on R/A; Pain 0/10; ch 11:51 BP 117 / 80; Pulse 66; Resp 14; Temp 98; Pulse Ox 98% on R/A; Pain 0/10; ch 09:33 Body Mass Index 35.29 (114.76 kg, 180.34 cm) aj MDM: 09:24 Patient medically screened. rn 11:39 Differential diagnosis: generalized weakness, hyperventilation, hypovolemia, idiopathic rn dizziness, TIA, vertigo, dehydration, hyperglycemia. Data reviewed: vital signs, nurses notes, lab test result(s), EKG, radiologic studies, CT scan, MRI, and as a result, I will discharge patient. Counseling: I had a detailed discussion with the patient and/or guardian regarding: the historical points, exam findings, and any diagnostic results supporting the discharge/admit diagnosis, lab results, radiology results, the need for outpatient follow up, to return to the emergency department if symptoms worsen or persist or if there are any questions or concerns that arise at home. Response to treatment: the patient's symptoms have resolved after treatment, the patient's condition has returned to base line, the patient is now symptom free, and as a result, I will discharge patient. Special discussion: I discussed with the patient/guardian in detail that at this point there is no indication for admission to the hospital. It is understood, however, that if the symptoms persist or worsen the patient needs to return immediately for re-evaluation. ED course: CT/MRI normal, hyperglycemia without gap or acidosis, will dc home with pcp f/u and hydration. BP improved on its own, currently 117/78 and symptoms have resolved, numbness of fingertips not likely CVA, MRI obtained and ruled out CVA.. 02/01 09:32 Order name: Basic Metabolic Panel; Complete Time: 10:24 02/01 09:32 Order name: CBC with Diff; Complete Time: 10:02/01 09:32 Order name: Ckmb; Complete Time: 10:02/01 09:32 Order name: CPK; Complete Time: 10:02/01 09:32 Order name: Magnesium; Complete Time: 10:02/01 09:32 Order name: Troponin (emerg Dept Use Only); Complete Time: 10:02/01 09:32 Order name: CT Head Brain wo Cont; Complete Time: 10:12 rn 02/01 09:32 Order name: EKG; Complete Time: 09:33 rn 02/01 09:32 Order name: Cardiac monitoring; Complete Time: :55 rn 02/01 09:32 Order name: EKG - Nurse/Tech; Complete Time: :55 rn 02/01 09:32 Order name: IV Saline Lock; Complete Time: :55 rn 02/01 10:12 Order name: Glucose, Ancillary Testing; Complete Time: 10:13 EDMS 02/01 10:13 Order name: Brain Wo Cont MRI; Complete Time: 11:35 rn 02/01 09:32 Order name: Labs collected and sent; Complete Time: :55 rn 02/01 09:32 Order name: NPO; Complete Time: : rn 02/01 09:32 Order name: O2 Per Protocol; Complete Time: rn 02/01 09:32 Order name: O2 Sat Monitoring; Complete Time: :55 rn Administered Medications: 10:05 Drug: NS 0.9% 500 ml Route: IV; Rate: bolus; Site: left forearm; 10:53 Follow up: IV Status: Completed infusion; IV Intake: 500ml ch Point of Care Testing: Blood Glucose: 09:50 Blood Glucose: 201 mg/dL; ch Ranges: Critical Glucose Levels:Adult <50 mg/dl or >400 mg/dl <40 mg/dl or >180 mg/dl Disposition: 02/01/18 11:42 Discharged to Home. Impression: Paresthesia of skin, Hyperglycemia, unspecified, Dehydration, Dizziness and giddiness. - Condition is Stable. - Discharge Instructions: Dehydration, Adult, Dizziness, Hyperglycemia, Paresthesia. - Work release form, Medication Reconciliation Form, Thank You Letter, Antibiotic Education, Prescription Opioid Use form. - Follow up: Private Physician; When: As needed; Reason: Recheck today's complaints, Re-evaluation by your physician. - Problem is new. - Symptoms have improved. Signatures: Dispatcher [employer] Angela Marshall RN RN ch Myers, Amanda, RN RN aj Nieto, Roman, MD MD rn Corrections: (The following items were deleted from the chart) 11:52 11:42 02/01/2018 11:42 Discharged to Home. Impression: Paresthesia of skin; ch Hyperglycemia, unspecified; Dehydration; Dizziness and giddiness. Condition is Stable. Forms are Medication Reconciliation Form, Thank You Letter, Antibiotic Education, Prescription Opioid Use. Follow up: Private Physician; When: As needed; Reason: Recheck today's complaints, Re-evaluation by your physician. Problem is new. Symptoms have improved. rn
--- NOTE | 2018-02-01 16:16 | EKG ---
Test Date: 2018-02-01 Test Time: 09:47:48 Shear Scrapman: RIK MEASUREMENT RESULTS: Intervals: Rate: 80 TN: 166 QRSD: 82 QT: 368 QTc: 424 Chicken: P: 35 TN: 166 QRS: 49 T: 52 INTERPRETIVE STATEMENTS: Normal sinus rhythm Normal ECG Compared to ECG 11/01/2017 16:44:40 No significant changes Electronically Signed On 02-01-18 16:14:29 CDT by Addison August
== END 2018-02-01 11:52 | disposition home or self-care (01) ==
LOC: ER 09:20
DX: R20.2 Paresthesia of skin (principal); E11.65 Type 2 diabetes mellitus with hyperglycemia; E86.0 Dehydration; R42 Dizziness and giddiness; I10 Essential (primary) hypertension; Z88.3 Allergy status to other anti-infective agents
CPT/HCPCS: 36415; 70450; 70551; 80048; 82550; 82553; 82962; 83735; 84484; 85025; 93005; 96360; 99285